=== PATIENT | male | born 1960 | race Two or more races ===

== ENCOUNTER 2018-12-16 00:31 | Emergency (ER) | payer MEDICAID ==
[~2018-12-16] VITALS: Ht 167.6 cm; Wt 81.8 kg
[2018-12-16 00:43] VITALS: BP 143/87
--- NOTE | 2018-12-16 00:55 | NUR ---
USED [employer] PHONE TO COMMUNICATE WITH PT FOR TRIAGE ASSESSMENT. PHONE LEFT IN ROOM FOR OTHERS USE IF NECESSARY. DR MCKEON IN ROOM DURING TRIAGE ASSESSMENT.
[2018-12-16] MEDS ORDERED: SILV20CR13 TOP (02:04)
[2018-12-16] MEDS ORDERED: Silvasorb gel 45gm tube TP SCH (08:00)
== END 2018-12-16 02:34 | disposition home or self-care (01) ==
LOC: ER 00:32
DX: T24.221A Burn of second degree of right knee, initial encounter (principal); Z79.899 Other long term (current) drug therapy; F17.200 Nicotine dependence, unspecified, uncomplicated; X19.XXXA Contact with other heat and hot substances, initial encounter; Y93.89 Activity, other specified; Y92.89 Other specified places as the place of occurrence of the external cause; Y99.8 Other external cause status
CPT/HCPCS: 16020; 99283; 99284